=== PATIENT | female | born 2005 ===

== ENCOUNTER 2025-06-17 23:02 | Emergency (ER) | payer OTHER ==
[~2025-06-17] VITALS: Ht 162.6 cm; Wt 90.7 kg
[~2025-06-17 23:02] MED LIST: ALBU4 PO; Gyne-Lotrimin21 GM VG; MONT5TCH PO
[2025-06-17 23:29] VITALS: BP 120/79
[2025-06-17 23:56] LABS: BASOPHILS ABSOLUTE AUTO 0.05 K/mm3 (0.00-0.23); BASOPHILS PERCENT AUTO 1 % (0-2); EOSINOPHILS ABSOLUTE AUTO 0.15 K/mm3 (0.00-0.68); EOSINOPHILS PERCENT AUTO 2 % (0-6); Hematocrit 43.7 % (33.0-51.0); Hemoglobin 14.8 g/dL (11.5-16.0); IMMATURE GRAN ABSOLUTE AUTO 0.01 K/mm3 (0.00-0.10); IMMATURE GRAN PERCENT AUTO 0 % (0-1); LYMPHOCYTES ABSOLUTE AUTO 2.83 K/mm3 (0.84-5.20); LYMPHOCYTES PERCENT AUTO 30 % (21-46); MONOCYTES ABSOLUTE AUTO 0.67 K/mm3 (0.16-1.47); MONOCYTES PERCENT AUTO 7 % (4-13); Mean Corpuscular HGB Conc 33.9 g/dL (31.5-36.5); Mean Corpuscular Volume 86 fL (80-100); NEUTROPHILS ABSOLUTE AUTO 5.63 K/mm3 (1.96-9.15); NEUTROPHILS PERCENT AUTO 60 % (41-73); NRBC ABSOLUTE 0.00 K/mm3 (0.00-0.02); NRBC Auto 0.0 /100 WBC (0.0-0.2); Platelet Count 330 K/mm3 (150-400); RDW Coefficient Variation 12.5 % (11.7-14.2); RDW Standard Deviation 39.3 fL (35.1-46.3)
[2025-06-18 00:20] LABS: Alanine Aminotransfer (ALT/SGP 25.0 U/L (12-78); Albumin, Blood 3.8 g/dL (3.4-5.0); Albumin/Globulin Ratio 1.0 (0.8-1.8); Anion Gap 10.0 mmol/L (3-11); Aspartate Aminotrans (AST/SGOT 16.0 U/L (12-37); Bilirubin, Total 0.5 mg/dL (0.1-1.0); Blood Urea Nitrogen 8.0 mg/dL (8-24); CO2, Blood 19.0 mmol/L (21-32); Calcium, Blood 8.7 mg/dL (8.5-10.1); Chloride, Blood 112.0 mmol/L (98-108); Creatinine, Blood 0.74 mg/dL (0.40-1.00); Globulin, Blood 3.7 g/dL (2.2-4.0); Glucose, Blood 96.0 mg/dL (70-99); Potassium, Blood 3.4 mmol/L (3.5-5.5); Sodium, Blood 138.0 mmol/L (136-145); Total Protein, Blood 7.5 g/dL (6.4-8.2)
[2025-06-18] MEDS ORDERED: Ondansetron HCl 2 MG / ML 2ML Vial IV ONE (00:40)
[2025-06-18] MEDS ORDERED: Ketorolac Tromethamine 15mg Vial IV ONE (00:40)
[2025-06-18] MEDS ORDERED: Dexamethasone Sod Phos 10 MG/ML 1ML VIAL IV ONE (00:40)
[2025-06-18] MEDS ORDERED: Ondansetron 4 MG SoluTab MM ONE (00:40)
[2025-06-18] MEDS ORDERED: RX Prepack 2 Tabs Ondansetron ODT 4MG UD ONE (00:45)
== END 2025-06-18 01:35 | disposition home or self-care (01) ==
LOC: ER 23:02
PROVIDERS: Student in an Organized Health Care Education/Training Program
DX: S06.0X0A Concussion without loss of consciousness, initial encounter (principal); E87.6 Hypokalemia; W22.8XXA Striking against or struck by other objects, initial encounter; Z91.018 Allergy to other foods
CPT/HCPCS: 80053; 84703; 85025; 96374; 96375; 99283; A9270; J1100; J1885; J2405

== ENCOUNTER 2025-08-07 19:58 | Emergency (ER) | payer OTHER ==
[~2025-08-07] VITALS: Ht 160 cm; Wt 90.7 kg
[2025-08-07 20:00] VITALS: BP 116/96
[2025-08-07] MEDS ORDERED: Ketorolac Tromethamine 15mg Vial IM ONE (20:15)
[2025-08-07] MEDS ORDERED: HYDHCL25 (21:19)
[2025-08-07] MEDS ORDERED: GABA100 (21:20)
[2025-08-07] MEDS ORDERED: ASPERFLEX1 EACH TOP (21:34)
[2025-08-07] MEDS ORDERED: Robaxin750 MG PO (21:34)
== END 2025-08-07 21:41 | disposition home or self-care (01) ==
LOC: ER 19:58
DX: M54.42 Lumbago with sciatica, left side (principal); J45.909 Unspecified asthma, uncomplicated; Z91.09 Other allergy status, other than to drugs and biological substances; Z79.899 Other long term (current) drug therapy
CPT/HCPCS: 96372; 99283-25; J1885

== ENCOUNTER 2025-09-15 22:50 | Emergency (ER) | payer OTHER ==
[~2025-09-15] VITALS: Ht 162.6 cm; Wt 79.4 kg
[~2025-09-15 22:50] MED LIST changes: +ASPERFLEX1 EACH TOP; +GABA100; +HYDHCL25; +Robaxin750 MG PO
[2025-09-15 23:11] VITALS: BP 140/79
== END 2025-09-16 | disposition home or self-care (01) ==
LOC: ER 22:50
DX: K12.1 Other forms of stomatitis (principal); K11.7 Disturbances of salivary secretion; J45.909 Unspecified asthma, uncomplicated; Z91.09 Other allergy status, other than to drugs and biological substances; Z79.899 Other long term (current) drug therapy
CPT/HCPCS: 99282